=== PATIENT | male | born 1960 | race Caucasian/White ===

== ENCOUNTER → 2023-06-20 | Outpatient (CLI) | payer OTHER ==
[2023-06-20 09:52] LABS: BASO # 0.1 10*3/uL (0.0-0.1); BASO % 1.1 % (0.0-1.0); EOS # 0.2 10*3/uL (0.0-0.4); EOS % 4.4 % (1.0-4.0); HEMATOCRIT 44.4 % (42.0-52.0); LYMPH # 0.8 10*3/uL (1.3-4.4); LYMPH % 18.6 % (27.0-41.0); MEAN CELL VOLUME 96.1 fl (80.0-94.0); MEAN CORPUSCULAR HGB 31.6 pg (27.0-31.0); MEAN CORPUSCULAR HGB CONC 32.9 g/dl (33.0-37.0); MEAN PLATELET VOLUME 9.8 fl (9.6-12.3); MONO # 0.4 10*3/uL (0.1-1.0); MONO % 8.7 % (3.0-9.0); NEUT # 2.9 10*3/uL (2.3-7.9); PLATELET COUNT AUTOMATED 231 10*3/uL (130-400); RED BLOOD COUNT 4.62 10*6/uL (4.50-5.90); RED CELL DISTRI WIDTH 12.6 % (0-14.5); WHITE BLOOD COUNT 4.4 10*3/uL (4.8-10.8)
[2023-06-20 10:18] LABS: ALKALINE PHOSPHATASE 71 U/L (46-116); BUN 17 mg/dl (9-23); CHLORIDE 106 mmol/L (98-107); POTASSIUM 4.6 mmol/L (3.4-5.1); SGPT/ALT 12 U/L (5-49); TOTAL PROTEIN 7.2 gm/dL (6.0-8.0)
== END | disposition home or self-care (01) ==
LOC: LAB 07:46 → WOUNDCARE 07:46
PROVIDERS: ATTEND Nurse Practitioner Family
DX: M27.2 Inflammatory conditions of jaws (principal); R68.2 Dry mouth, unspecified; H61.23 Impacted cerumen, bilateral; Z85.828 Personal history of other malignant neoplasm of skin; Z92.3 Personal history of irradiation; Z92.21 Personal history of antineoplastic chemotherapy; Z87.891 Personal history of nicotine dependence; Z79.899 Other long term (current) drug therapy; W88.8XXA Exposure to other ionizing radiation, initial encounter; Y93.89 Activity, other specified; Y92.89 Other specified places as the place of occurrence of the external cause; Y99.8 Other external cause status

== ENCOUNTER → 2023-06-26 | Outpatient (CLI) | payer OTHER | END | disposition home or self-care (01) | LOC: WOUNDCARE 03:58 | PROVIDERS: ATTEND Nurse Practitioner Family | DX: M27.2 Inflammatory conditions of jaws (principal); R68.2 Dry mouth, unspecified; H61.23 Impacted cerumen, bilateral; Z85.828 Personal history of other malignant neoplasm of skin; Z92.21 Personal history of antineoplastic chemotherapy; Z92.3 Personal history of irradiation; Z87.891 Personal history of nicotine dependence; Z79.899 Other long term (current) drug therapy; W88.8XXD Exposure to other ionizing radiation, subsequent encounter ==

== ENCOUNTER → 2023-06-27 | Outpatient (CLI) | payer OTHER | END | disposition home or self-care (01) | LOC: WOUNDCARE 01:30 | PROVIDERS: ATTEND Nurse Practitioner Family | DX: M27.2 Inflammatory conditions of jaws (principal); R68.2 Dry mouth, unspecified; H61.23 Impacted cerumen, bilateral; Z87.891 Personal history of nicotine dependence; Z85.828 Personal history of other malignant neoplasm of skin; Z92.21 Personal history of antineoplastic chemotherapy; Z92.3 Personal history of irradiation; Z79.899 Other long term (current) drug therapy; W88.8XXD Exposure to other ionizing radiation, subsequent encounter ==

== ENCOUNTER → 2023-06-28 | Outpatient (CLI) | payer OTHER | END | disposition home or self-care (01) | LOC: WOUNDCARE 01:05 | PROVIDERS: ATTEND Nurse Practitioner Family | DX: M27.2 Inflammatory conditions of jaws (principal); R68.2 Dry mouth, unspecified; H61.23 Impacted cerumen, bilateral; Z87.891 Personal history of nicotine dependence; Z85.828 Personal history of other malignant neoplasm of skin; Z92.21 Personal history of antineoplastic chemotherapy; Z92.3 Personal history of irradiation; Z79.899 Other long term (current) drug therapy; W88.8XXD Exposure to other ionizing radiation, subsequent encounter ==

== ENCOUNTER → 2023-06-29 | Outpatient (CLI) | payer OTHER | END | disposition home or self-care (01) | LOC: WOUNDCARE 00:38 | PROVIDERS: ATTEND Nurse Practitioner Family | DX: M27.2 Inflammatory conditions of jaws (principal); H61.23 Impacted cerumen, bilateral; R68.2 Dry mouth, unspecified; Z87.891 Personal history of nicotine dependence; Z85.828 Personal history of other malignant neoplasm of skin; Z92.21 Personal history of antineoplastic chemotherapy; Z92.3 Personal history of irradiation; Z79.899 Other long term (current) drug therapy; W88.8XXD Exposure to other ionizing radiation, subsequent encounter ==

== ENCOUNTER → 2023-06-30 | Outpatient (CLI) | payer OTHER | END | disposition home or self-care (01) | LOC: WOUNDCARE 00:14 | PROVIDERS: ATTEND Nurse Practitioner Family | DX: M27.2 Inflammatory conditions of jaws (principal); H61.23 Impacted cerumen, bilateral; R68.2 Dry mouth, unspecified; Z87.891 Personal history of nicotine dependence; Z85.828 Personal history of other malignant neoplasm of skin; Z92.21 Personal history of antineoplastic chemotherapy; Z92.3 Personal history of irradiation; Z79.899 Other long term (current) drug therapy; W88.8XXD Exposure to other ionizing radiation, subsequent encounter ==

== ENCOUNTER → 2023-07-03 | Outpatient (CLI) | payer OTHER | END | disposition home or self-care (01) | LOC: WOUNDCARE 01:43 | PROVIDERS: ATTEND Nurse Practitioner Family | DX: M27.2 Inflammatory conditions of jaws (principal); H61.23 Impacted cerumen, bilateral; R68.2 Dry mouth, unspecified; Z87.891 Personal history of nicotine dependence; Z92.21 Personal history of antineoplastic chemotherapy; Z92.3 Personal history of irradiation; Z85.828 Personal history of other malignant neoplasm of skin; Z79.899 Other long term (current) drug therapy; W88.8XXD Exposure to other ionizing radiation, subsequent encounter ==

== ENCOUNTER → 2023-07-04 | Outpatient (CLI) | payer OTHER | END | disposition home or self-care (01) | LOC: WOUNDCARE 00:43 | PROVIDERS: ATTEND Nurse Practitioner Family | DX: M27.2 Inflammatory conditions of jaws (principal); H61.23 Impacted cerumen, bilateral; R68.2 Dry mouth, unspecified; Z87.891 Personal history of nicotine dependence; Z92.21 Personal history of antineoplastic chemotherapy; Z92.3 Personal history of irradiation; Z85.828 Personal history of other malignant neoplasm of skin; Z79.899 Other long term (current) drug therapy; W88.8XXD Exposure to other ionizing radiation, subsequent encounter ==

== ENCOUNTER → 2023-07-05 | Outpatient (CLI) | payer OTHER | END | disposition home or self-care (01) | LOC: WOUNDCARE 03:12 | PROVIDERS: ATTEND Nurse Practitioner Family | DX: M27.2 Inflammatory conditions of jaws (principal); H61.23 Impacted cerumen, bilateral; R68.2 Dry mouth, unspecified; Z87.891 Personal history of nicotine dependence; Z92.21 Personal history of antineoplastic chemotherapy; Z92.3 Personal history of irradiation; Z85.828 Personal history of other malignant neoplasm of skin; Z79.899 Other long term (current) drug therapy; W88.8XXD Exposure to other ionizing radiation, subsequent encounter ==

== ENCOUNTER → 2023-07-07 | Outpatient (CLI) | payer OTHER | LOC: WOUNDCARE 01:04 | PROVIDERS: ATTEND Nurse Practitioner Family | DX: M27.2 Inflammatory conditions of jaws (principal); H61.23 Impacted cerumen, bilateral; R68.2 Dry mouth, unspecified; Z87.891 Personal history of nicotine dependence; Z92.3 Personal history of irradiation; Z92.21 Personal history of antineoplastic chemotherapy; Z85.828 Personal history of other malignant neoplasm of skin; Z79.899 Other long term (current) drug therapy; W88.8XXD Exposure to other ionizing radiation, subsequent encounter ==

== ENCOUNTER → 2023-07-10 | Outpatient (CLI) | payer OTHER | END | disposition home or self-care (01) | LOC: WOUNDCARE | PROVIDERS: ATTEND Nurse Practitioner Family | DX: M27.2 Inflammatory conditions of jaws (principal); H61.23 Impacted cerumen, bilateral; R68.2 Dry mouth, unspecified; Z87.891 Personal history of nicotine dependence; Z85.828 Personal history of other malignant neoplasm of skin; Z92.21 Personal history of antineoplastic chemotherapy; Z92.3 Personal history of irradiation; Z79.899 Other long term (current) drug therapy; W88.8XXD Exposure to other ionizing radiation, subsequent encounter ==

== ENCOUNTER → 2023-07-11 | Outpatient (CLI) | payer OTHER | END | disposition home or self-care (01) | LOC: WOUNDCARE | PROVIDERS: ATTEND Nurse Practitioner Family | DX: M27.2 Inflammatory conditions of jaws (principal); H61.23 Impacted cerumen, bilateral; R68.2 Dry mouth, unspecified; Z87.891 Personal history of nicotine dependence; Z85.828 Personal history of other malignant neoplasm of skin; Z92.21 Personal history of antineoplastic chemotherapy; Z92.3 Personal history of irradiation; Z79.899 Other long term (current) drug therapy; W88.8XXD Exposure to other ionizing radiation, subsequent encounter ==

== ENCOUNTER → 2023-07-12 | Outpatient (CLI) | payer OTHER | END | disposition home or self-care (01) | LOC: WOUNDCARE 03:34 | PROVIDERS: ATTEND Nurse Practitioner Family | DX: M27.2 Inflammatory conditions of jaws (principal); H61.23 Impacted cerumen, bilateral; R68.2 Dry mouth, unspecified; Z87.891 Personal history of nicotine dependence; Z85.828 Personal history of other malignant neoplasm of skin; Z92.21 Personal history of antineoplastic chemotherapy; Z92.3 Personal history of irradiation; Z79.899 Other long term (current) drug therapy; W88.8XXD Exposure to other ionizing radiation, subsequent encounter ==

== ENCOUNTER → 2023-07-13 | Outpatient (CLI) | payer OTHER | END | disposition home or self-care (01) | LOC: WOUNDCARE 01:18 | PROVIDERS: ATTEND Nurse Practitioner Family | DX: M27.2 Inflammatory conditions of jaws (principal); H61.23 Impacted cerumen, bilateral; R68.2 Dry mouth, unspecified; Z87.891 Personal history of nicotine dependence; Z85.828 Personal history of other malignant neoplasm of skin; Z92.21 Personal history of antineoplastic chemotherapy; Z92.3 Personal history of irradiation; Z79.899 Other long term (current) drug therapy; W88.8XXD Exposure to other ionizing radiation, subsequent encounter ==

== ENCOUNTER → 2023-07-14 | Outpatient (CLI) | payer OTHER | LOC: WOUNDCARE 03:18 | PROVIDERS: ATTEND Nurse Practitioner Family | DX: M27.2 Inflammatory conditions of jaws (principal); H61.23 Impacted cerumen, bilateral; R68.2 Dry mouth, unspecified; Z87.891 Personal history of nicotine dependence; Z85.828 Personal history of other malignant neoplasm of skin; Z92.21 Personal history of antineoplastic chemotherapy; Z92.3 Personal history of irradiation; Z79.899 Other long term (current) drug therapy; W88.8XXD Exposure to other ionizing radiation, subsequent encounter ==

== ENCOUNTER → 2023-07-17 | Outpatient (CLI) | payer OTHER | END | disposition home or self-care (01) | LOC: WOUNDCARE 02:22 | PROVIDERS: ATTEND Nurse Practitioner Family | DX: M27.2 Inflammatory conditions of jaws (principal); H61.23 Impacted cerumen, bilateral; R68.2 Dry mouth, unspecified; Z87.891 Personal history of nicotine dependence; Z85.828 Personal history of other malignant neoplasm of skin; Z92.3 Personal history of irradiation; Z92.29 Personal history of other drug therapy; Z79.899 Other long term (current) drug therapy; W88.8XXD Exposure to other ionizing radiation, subsequent encounter ==

== ENCOUNTER → 2023-07-18 | Outpatient (CLI) | payer OTHER | END | disposition home or self-care (01) | LOC: WOUNDCARE 00:55 | PROVIDERS: ATTEND Nurse Practitioner Family | DX: M27.2 Inflammatory conditions of jaws (principal); H61.23 Impacted cerumen, bilateral; R68.2 Dry mouth, unspecified; Z87.891 Personal history of nicotine dependence; Z85.828 Personal history of other malignant neoplasm of skin; Z92.21 Personal history of antineoplastic chemotherapy; Z92.3 Personal history of irradiation; Z79.899 Other long term (current) drug therapy; W88.8XXD Exposure to other ionizing radiation, subsequent encounter ==

== ENCOUNTER → 2023-07-19 | Outpatient (CLI) | payer OTHER | END | disposition home or self-care (01) | LOC: WOUNDCARE 01:57 | PROVIDERS: ATTEND Nurse Practitioner Family | DX: M27.2 Inflammatory conditions of jaws (principal); H61.23 Impacted cerumen, bilateral; R68.2 Dry mouth, unspecified; Z87.891 Personal history of nicotine dependence; Z85.828 Personal history of other malignant neoplasm of skin; Z92.3 Personal history of irradiation; Z92.29 Personal history of other drug therapy; Z79.899 Other long term (current) drug therapy; W88.8XXD Exposure to other ionizing radiation, subsequent encounter ==

== ENCOUNTER → 2023-07-20 | Outpatient (CLI) | payer OTHER | END | disposition home or self-care (01) | LOC: WOUNDCARE 00:29 | PROVIDERS: ATTEND Nurse Practitioner Family | DX: M27.2 Inflammatory conditions of jaws (principal); H61.23 Impacted cerumen, bilateral; R68.2 Dry mouth, unspecified; Z85.828 Personal history of other malignant neoplasm of skin; Z92.21 Personal history of antineoplastic chemotherapy; Z92.3 Personal history of irradiation; Z87.891 Personal history of nicotine dependence; Z79.899 Other long term (current) drug therapy; W88.8XXD Exposure to other ionizing radiation, subsequent encounter ==

== ENCOUNTER → 2023-07-26 | Outpatient (CLI) | payer OTHER | END | disposition home or self-care (01) | LOC: WOUNDCARE 01:25 | PROVIDERS: ATTEND Nurse Practitioner Family | DX: M27.2 Inflammatory conditions of jaws (principal); H61.23 Impacted cerumen, bilateral; R68.2 Dry mouth, unspecified; Z87.891 Personal history of nicotine dependence; Z85.828 Personal history of other malignant neoplasm of skin; Z92.21 Personal history of antineoplastic chemotherapy; Z92.3 Personal history of irradiation; Z79.899 Other long term (current) drug therapy; W88.8XXD Exposure to other ionizing radiation, subsequent encounter ==

== ENCOUNTER → 2023-07-27 | Outpatient (CLI) | payer OTHER | END | disposition home or self-care (01) | LOC: WOUNDCARE 01:58 | PROVIDERS: ATTEND Nurse Practitioner Family | DX: M27.2 Inflammatory conditions of jaws (principal); H61.23 Impacted cerumen, bilateral; R68.2 Dry mouth, unspecified; Z87.891 Personal history of nicotine dependence; Z85.828 Personal history of other malignant neoplasm of skin; Z92.3 Personal history of irradiation; Z92.21 Personal history of antineoplastic chemotherapy; Z79.899 Other long term (current) drug therapy; W88.8XXD Exposure to other ionizing radiation, subsequent encounter ==

== ENCOUNTER → 2023-07-28 | Outpatient (CLI) | payer OTHER | END | disposition home or self-care (01) | LOC: WOUNDCARE 01:35 | PROVIDERS: ATTEND Nurse Practitioner Family | DX: M27.2 Inflammatory conditions of jaws (principal); H61.23 Impacted cerumen, bilateral; R68.2 Dry mouth, unspecified; Z87.891 Personal history of nicotine dependence; Z85.828 Personal history of other malignant neoplasm of skin; Z92.21 Personal history of antineoplastic chemotherapy; Z92.3 Personal history of irradiation; Z79.899 Other long term (current) drug therapy; W88.8XXD Exposure to other ionizing radiation, subsequent encounter ==

== ENCOUNTER → 2023-07-31 | Outpatient (CLI) | payer OTHER | END | disposition home or self-care (01) | LOC: WOUNDCARE 00:30 | PROVIDERS: ATTEND Nurse Practitioner Primary Care | DX: M27.2 Inflammatory conditions of jaws (principal); H61.23 Impacted cerumen, bilateral; R68.2 Dry mouth, unspecified; Z87.891 Personal history of nicotine dependence; Z92.21 Personal history of antineoplastic chemotherapy; Z85.828 Personal history of other malignant neoplasm of skin; Z92.3 Personal history of irradiation; Z79.899 Other long term (current) drug therapy; W88.8XXD Exposure to other ionizing radiation, subsequent encounter ==

== ENCOUNTER → 2023-08-01 | Outpatient (CLI) | payer OTHER | END | disposition home or self-care (01) | LOC: WOUNDCARE 00:40 | PROVIDERS: ATTEND Nurse Practitioner Family | DX: M27.2 Inflammatory conditions of jaws (principal); H61.23 Impacted cerumen, bilateral; R68.2 Dry mouth, unspecified; Z87.891 Personal history of nicotine dependence; Z85.828 Personal history of other malignant neoplasm of skin; Z92.21 Personal history of antineoplastic chemotherapy; Z92.3 Personal history of irradiation; Z79.899 Other long term (current) drug therapy; W88.8XXD Exposure to other ionizing radiation, subsequent encounter ==

== ENCOUNTER → 2023-08-02 | Outpatient (CLI) | payer OTHER | END | disposition home or self-care (01) | LOC: WOUNDCARE 01:31 | PROVIDERS: ATTEND Nurse Practitioner Family | DX: M27.2 Inflammatory conditions of jaws (principal); H61.23 Impacted cerumen, bilateral; R68.2 Dry mouth, unspecified; Z87.891 Personal history of nicotine dependence; Z92.3 Personal history of irradiation; Z92.21 Personal history of antineoplastic chemotherapy; Z85.828 Personal history of other malignant neoplasm of skin; Z79.899 Other long term (current) drug therapy; W88.8XXD Exposure to other ionizing radiation, subsequent encounter ==

== ENCOUNTER → 2023-08-03 | Outpatient (CLI) | payer OTHER | END | disposition home or self-care (01) | LOC: WOUNDCARE 01:57 | PROVIDERS: ATTEND Nurse Practitioner Family | DX: M27.2 Inflammatory conditions of jaws (principal); H61.23 Impacted cerumen, bilateral; R68.2 Dry mouth, unspecified; Z87.891 Personal history of nicotine dependence; Z85.828 Personal history of other malignant neoplasm of skin; Z92.21 Personal history of antineoplastic chemotherapy; Z92.3 Personal history of irradiation; Z79.899 Other long term (current) drug therapy; W88.8XXD Exposure to other ionizing radiation, subsequent encounter ==

== ENCOUNTER → 2023-08-08 | Outpatient (CLI) | payer OTHER | END | disposition home or self-care (01) | LOC: WOUNDCARE 01:09 | PROVIDERS: ATTEND Nurse Practitioner Family | DX: M27.2 Inflammatory conditions of jaws (principal); H61.23 Impacted cerumen, bilateral; R68.2 Dry mouth, unspecified; Z87.891 Personal history of nicotine dependence; Z85.828 Personal history of other malignant neoplasm of skin; Z92.21 Personal history of antineoplastic chemotherapy; Z92.3 Personal history of irradiation; Z79.899 Other long term (current) drug therapy; W88.8XXD Exposure to other ionizing radiation, subsequent encounter ==

== ENCOUNTER → 2023-08-09 | Outpatient (CLI) | payer OTHER | END | disposition home or self-care (01) | LOC: WOUNDCARE 02:20 | PROVIDERS: ATTEND Nurse Practitioner Family | DX: M27.2 Inflammatory conditions of jaws (principal); H61.23 Impacted cerumen, bilateral; R68.2 Dry mouth, unspecified; Z87.891 Personal history of nicotine dependence; Z92.21 Personal history of antineoplastic chemotherapy; Z92.3 Personal history of irradiation; Z85.828 Personal history of other malignant neoplasm of skin; Z79.899 Other long term (current) drug therapy; W88.8XXD Exposure to other ionizing radiation, subsequent encounter ==

== ENCOUNTER → 2023-08-10 | Outpatient (CLI) | payer OTHER | END | disposition home or self-care (01) | LOC: WOUNDCARE 01:39 | PROVIDERS: ATTEND Nurse Practitioner Family | DX: M27.2 Inflammatory conditions of jaws (principal); R68.2 Dry mouth, unspecified; H61.23 Impacted cerumen, bilateral; Z87.891 Personal history of nicotine dependence; Z85.828 Personal history of other malignant neoplasm of skin; Z92.21 Personal history of antineoplastic chemotherapy; Z92.3 Personal history of irradiation; Z79.899 Other long term (current) drug therapy; W88.8XXD Exposure to other ionizing radiation, subsequent encounter ==

== ENCOUNTER → 2023-08-11 | Outpatient (CLI) | payer OTHER | END | disposition home or self-care (01) | LOC: WOUNDCARE 02:29 | PROVIDERS: ATTEND Nurse Practitioner Family | DX: M27.2 Inflammatory conditions of jaws (principal); R68.2 Dry mouth, unspecified; H61.23 Impacted cerumen, bilateral; Z87.891 Personal history of nicotine dependence; Z92.21 Personal history of antineoplastic chemotherapy; Z85.828 Personal history of other malignant neoplasm of skin; Z92.3 Personal history of irradiation; Z79.899 Other long term (current) drug therapy; W88.8XXD Exposure to other ionizing radiation, subsequent encounter ==

== ENCOUNTER → 2023-08-14 | Outpatient (CLI) | payer OTHER | END | disposition home or self-care (01) | LOC: WOUNDCARE 01:15 | PROVIDERS: ATTEND Nurse Practitioner Family | DX: M27.2 Inflammatory conditions of jaws (principal); R68.2 Dry mouth, unspecified; H61.23 Impacted cerumen, bilateral; Z87.891 Personal history of nicotine dependence; Z92.3 Personal history of irradiation; Z92.21 Personal history of antineoplastic chemotherapy; Z85.828 Personal history of other malignant neoplasm of skin; Z79.899 Other long term (current) drug therapy; W88.8XXD Exposure to other ionizing radiation, subsequent encounter ==

== ENCOUNTER → 2023-08-15 | Outpatient (CLI) | payer OTHER | END | disposition home or self-care (01) | LOC: WOUNDCARE 01:01 | PROVIDERS: ATTEND Student in an Organized Health Care Education/Training Program | DX: M27.2 Inflammatory conditions of jaws (principal); R68.2 Dry mouth, unspecified; H61.23 Impacted cerumen, bilateral; Z87.891 Personal history of nicotine dependence; Z92.21 Personal history of antineoplastic chemotherapy; Z92.3 Personal history of irradiation; Z85.828 Personal history of other malignant neoplasm of skin; Z79.899 Other long term (current) drug therapy; W88.8XXD Exposure to other ionizing radiation, subsequent encounter ==

== ENCOUNTER → 2023-08-16 | Outpatient (CLI) | payer OTHER | END | disposition home or self-care (01) | LOC: WOUNDCARE 01:57 | PROVIDERS: ATTEND Internal Medicine | DX: M27.2 Inflammatory conditions of jaws (principal); R68.2 Dry mouth, unspecified; H61.23 Impacted cerumen, bilateral; Z87.891 Personal history of nicotine dependence; Z92.21 Personal history of antineoplastic chemotherapy; Z92.3 Personal history of irradiation; Z85.828 Personal history of other malignant neoplasm of skin; Z79.899 Other long term (current) drug therapy; W88.8XXD Exposure to other ionizing radiation, subsequent encounter ==

== ENCOUNTER → 2023-08-17 | Outpatient (CLI) | payer OTHER | END | disposition home or self-care (01) | LOC: WOUNDCARE 00:46 | PROVIDERS: ATTEND Nurse Practitioner Family | DX: M27.2 Inflammatory conditions of jaws (principal); R68.2 Dry mouth, unspecified; H61.23 Impacted cerumen, bilateral; Z87.891 Personal history of nicotine dependence; Z92.21 Personal history of antineoplastic chemotherapy; Z92.3 Personal history of irradiation; Z85.828 Personal history of other malignant neoplasm of skin; Z79.899 Other long term (current) drug therapy; W88.8XXD Exposure to other ionizing radiation, subsequent encounter ==

== ENCOUNTER → 2023-08-18 | Outpatient (CLI) | payer OTHER | END | disposition home or self-care (01) | LOC: WOUNDCARE 01:38 | PROVIDERS: ATTEND Nurse Practitioner Family | DX: M27.2 Inflammatory conditions of jaws (principal); R68.2 Dry mouth, unspecified; H61.23 Impacted cerumen, bilateral; Z87.891 Personal history of nicotine dependence; Z85.828 Personal history of other malignant neoplasm of skin; W88.8XXD Exposure to other ionizing radiation, subsequent encounter ==

== ENCOUNTER → 2023-08-21 | Outpatient (CLI) | payer OTHER | END | disposition home or self-care (01) | LOC: WOUNDCARE 01:47 | PROVIDERS: ATTEND Nurse Practitioner Family | DX: M27.2 Inflammatory conditions of jaws (principal); R68.2 Dry mouth, unspecified; H61.23 Impacted cerumen, bilateral; Z87.891 Personal history of nicotine dependence; Z85.828 Personal history of other malignant neoplasm of skin; W88.8XXD Exposure to other ionizing radiation, subsequent encounter ==

== ENCOUNTER → 2023-08-22 | Outpatient (CLI) | payer OTHER | END | disposition home or self-care (01) | LOC: WOUNDCARE 00:19 | PROVIDERS: ATTEND Nurse Practitioner Family | DX: M27.2 Inflammatory conditions of jaws (principal); R68.2 Dry mouth, unspecified; H61.23 Impacted cerumen, bilateral; Z87.891 Personal history of nicotine dependence; Z85.828 Personal history of other malignant neoplasm of skin; W88.8XXD Exposure to other ionizing radiation, subsequent encounter ==

== ENCOUNTER → 2023-08-23 | Outpatient (CLI) | payer OTHER | END | disposition home or self-care (01) | LOC: WOUNDCARE 02:40 | PROVIDERS: ATTEND Nurse Practitioner Family | DX: M27.2 Inflammatory conditions of jaws (principal); R68.2 Dry mouth, unspecified; H61.23 Impacted cerumen, bilateral; Z87.891 Personal history of nicotine dependence; Z85.828 Personal history of other malignant neoplasm of skin; W88.8XXD Exposure to other ionizing radiation, subsequent encounter ==

== ENCOUNTER → 2023-08-24 | Outpatient (CLI) | payer OTHER | END | disposition home or self-care (01) | LOC: WOUNDCARE 01:28 | PROVIDERS: ATTEND Nurse Practitioner Family | DX: M27.2 Inflammatory conditions of jaws (principal); R68.2 Dry mouth, unspecified; H61.23 Impacted cerumen, bilateral; Z87.891 Personal history of nicotine dependence; Z85.828 Personal history of other malignant neoplasm of skin; Z92.3 Personal history of irradiation; Z92.21 Personal history of antineoplastic chemotherapy; W88.8XXD Exposure to other ionizing radiation, subsequent encounter ==

== ENCOUNTER → 2023-08-25 | Outpatient (CLI) | payer OTHER | END | disposition home or self-care (01) | LOC: WOUNDCARE 02:03 | PROVIDERS: ATTEND Nurse Practitioner Family | DX: M27.2 Inflammatory conditions of jaws (principal); H61.23 Impacted cerumen, bilateral; R68.2 Dry mouth, unspecified; Z87.891 Personal history of nicotine dependence; Z85.828 Personal history of other malignant neoplasm of skin; Z92.3 Personal history of irradiation; Z92.21 Personal history of antineoplastic chemotherapy; Z79.899 Other long term (current) drug therapy; W88.8XXD Exposure to other ionizing radiation, subsequent encounter ==